=== PATIENT | male | born 1975 | race Caucasian/White ===

== ENCOUNTER 2016-07-30 14:56 | Emergency (ER) | payer SELFPAY ==
[2016-07-30 14:57] VITALS: BMI 26.7
[2016-07-30] MEDS ORDERED: LORAZEPAM 2 MG/ML VIAL IV ONE (15:03)
[2016-07-30] MEDS: NS 1,000 ML IV ONE ×2 (15:13→15:41)
[2016-07-30 15:21] LABS: MPV 10.8 fL (7.4-10.4)
[2016-07-30 15:27] VITALS: TEMP 98.4
--- NOTE | 2016-07-30 15:27 | EDPRACDOC ---
- General Information Stated Complaint: SZ Time Seen by Provider: 07/30/16 15:01 Home Medications: Home Medications Amoxicillin 500 mg PO TID 07/30/16 Chlordiazepoxide HCl [Librium] 25 mg PO Q6 #14 capsule 07/30/16 Fexofenadine HCl [Yessy] 180 mg PO DAILY 07/30/16 Lisinopril/Hydrochlorothiazide [Lisinopril-Hctz 20-25 mg Tab] 1 tab PO DAILY 09/10 Allergies/Adverse Reactions: Allergies Allergy/AdvReac Type Severity Reaction Status Date / Time No Known Allergies Allergy Verified 11/11/15 16:58 - History of Present Illness Exact Onset of Symptoms: Unknown HPI: FOUND "TWITCHING". 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 LAST HEROIN USE A WEEK AGO. ED Past Medical History - History Reviewed Yes Nurses notes reviewed and agree except as marked - Patient Medical History GI/ History: Reports: Kidney Stones Surgical History: Reports: Other (SPLEENECTOMY, POST OP INTRA-ABDOMINAL ABSCESS FROM SPLEENECTOMY) - Social Medical History Smoking Status: Heavy tobacco smoker (5 or more cigarettes/day or daily pipe/ cigar) Social History: Reports: Amphetamine Use (IVDA) ETOH: Social Substance Abuse: Illicit Drugs (IV METHAMPHETAMINE) EDM Review of Systems - Review of Systems ROS Unobtainable: Yes Review of systems cannot be obtained due to the patient's medical condition - Physical Exam Constitutional: Alert, Confused, Restless Oriented to: Person, Not Oriented Last recorded Vital Signs: Oxygen Pulse Oxygen Saturation O2 Device Oxygen Flow Rate Fraction of Inspired Oxygen ( FIO2) - HEENT Head: Normal Eye Exam: Normal. negative: Pale Conjunctiva, Scleral Icterus Oropharynx: Membranes Dry Nose: No Symptoms Reported Neck: Normal - Respiratory/Cardiovascular Respiratory: Normal - CTA Cardiovascular: Tachycardia. negative: Diastolic murmur, Systolic murmur - GI Auscultation: Normal Palpation: Normal Tenderness: Non tender, Other (OLD MIDLINE INCISION SCAR) Allen's Sign: Negative - Musculoskeletal Back: Normal Extremities: Normal, Other (VEINS PATENT). negative: Clubbing, Cyanosis, Pedal Edema, Pedal Pulse - Integumentary Skin: Warm, Dry - Neurologic Motor Function: Other (MOVES ALL EXT) Mood Description: Anxious. negative: Appropriate Thought: Rambling Conversation. negative: Coherent - Differential Diagnosis Dehydration, Hypercalcemia, Hypernatremia, Hypoglycemia, Hyponatremia, Drug Overdose, ETOH intoxication, Medication toxicity, Meningitis, Sepsis - Re-evaluation Re-evaluation 2 Re-evaluation Time: 15:40 AMS IMPROVING, TAKING PO'S AGGRESSIVELY. HR DOWN. PT STILL HAS NO RECOLLECTION OF EVENTS TODAY. Re-evaluation 3 Re-evaluation Time: 16:58 (MUCH IMPROVED, ALERT AND COGNIZANT.) Re-evaluation 4 Re-evaluation Time: 17:30 (PATIENT 'S MOTHER CALLED A 1 CM PLACED IN DETOX, REHAB. THIS IS BASED UPON FACT THAT SHE THINKS HE IS ABUSING METHAMPHETAMINES AND OPIATES.) PATIENT HAS DECLINED DRUG TREATMENT PROGRAMS, REHAB, DETOX. HE HAS NO SUICIDAL IDEATION, HE HAS NO HOME SITE IDEATION HAS BEEN NO INDICATION PSYCHOSIS. FURTHERMORE HIS DRUG SCREEN IS COMPLETELY NEGATIVE FOR AMPHETAMINES AND OPIATES AT THIS TIME. CLINICAL CORRELATION IS THAT HE HAS QUIT TAKING THESE FOR SHORT PERIOD OF TIME AND THEY ARE NOT CURRENTLY IN HIS SYSTEM. ANY DETOX WOULD HAVE ALREADY OCCURRED. NO INDICATION FOR IVC PATIENT WILL BE ALLOWED TO DISCHARGE HOME - Results 07/30/16 15:12 07/30/16 15:12 - EKG EKG #1 EKG Time: 15:07 -: Yes EKG interpreted by me Rate: bpm: 131 [place]: Normal Rhythm: ST Block: None Hypertrophy: None ST: Normal - Diagnostic Imaging Head Image interpreted by: Radiologist Patient Name: CLAUS TONG LOC: ED : 1975 AGE: 40 Order Date:07/30/16 Date of Service:09/10 Report # [id number] Ord Physician: Ruth Ann Abraham MD Exam # [id number] Emergency Physician: Ruth Ann Abraham MD Exam(s): [id number] CT/CT HEAD W/O CM CLINICAL DATA: Altered mental status, drug abuse, seizure activity EXAM: CT HEAD WITHOUT CONTRAST TECHNIQUE: Contiguous axial images were obtained from the base of the skull through the vertex without contrast. COMPARISON: 09/08/2015 FINDINGS: Normal appearance of the intracranial structures. No evidence for acute hemorrhage, mass lesion, midline shift, hydrocephalus or large infarct. No acute bony abnormality. The visualized sinuses are clear. IMPRESSION: No acute intracranial abnormality. Electronically Signed By: Adalberto Rossi M.D. On: 07/30/2016 15:47 Electronically Signed By: Stalin Rossi MD Electronically Signed Date/Time: Dictate Date/Time: 07/30/16 1545 Technologist: Arvind Buck Transcribed By: Sudheer Transcribed Date/Time: 07/30/16 1547 Chest Image interpreted by: Radiologist Patient Name: CLAUS TONG LOC: ED : 1975 AGE: 40 Order Date:07/30/16 Date of Service:09/10 Report # [id number] Ord Physician: Ruth Ann Abraham MD Exam # [id number] Emergency Physician: Ruth Ann Abraham MD Exam(s): [id number] RAD/DG CHEST PORTABLE CLINICAL DATA: Shortness of breath. EXAM: PORTABLE CHEST 1 VIEW COMPARISON: None available currently. FINDINGS: The heart size and mediastinal contours are within normal limits. Both lungs are clear. No pneumothorax or pleural effusion is noted. The visualized skeletal structures are unremarkable. IMPRESSION: No acute cardiopulmonary abnormality seen. Electronically Signed By: Seun Quiñonez Jr, M.D. On: 07/30/2016 15:56 Electronically Signed By: Seun Quiñonez MD Electronically Signed Date/Time: Dictate Date/Time: 07/30/16 1555 Technologist: Js Tarango Transcribed By: Sudheer Transcribed Date/Time: 07/30/16 1556 - Departure Disposition: Home Condition: Good Final Diagnosis: Seizure Instructions: Seizures Education/Counseling Given To: Patient Education/Counseling Given Regarding: Diagnosis, Treatment, Prognosis Referrals: Rocky Matias MD [Primary Care Provider] - One Week Lawson Conn MD [Staff Physician] - One Week Prescriptions: New Chlordiazepoxide HCl [Librium] 25 mg PO Q6 #14 capsule No Action Fexofenadine HCl [Yessy] 180 mg PO DAILY Amoxicillin 500 mg PO TID Lisinopril/Hydrochlorothiazide [Lisinopril-Hctz 20-25 mg Tab] 1 tab PO DAILY Additional Instructions: Do Not drive or operate equipment until cleared by Neurology. If you have a seizure while performing these, you could cause serious harm to yourself or others.
[2016-07-30] MEDS ORDERED: DIAZEPAM 10 MG/2 ML TUBEX IV ONE (15:35)
[2016-07-30] MEDS ORDERED: NS 1,000 ML IV ONE (15:35)
--- NOTE | 2016-07-30 15:50 | DIRPT ---
CLINICAL DATA: Altered mental status, drug abuse, seizure activity EXAM: CT HEAD WITHOUT CONTRAST TECHNIQUE: Contiguous axial images were obtained from the base of the skull through the vertex without contrast. COMPARISON: 09/08/2015 FINDINGS: Normal appearance of the intracranial structures. No evidence for acute hemorrhage, mass lesion, midline shift, hydrocephalus or large infarct. No acute bony abnormality. The visualized sinuses are clear. IMPRESSION: No acute intracranial abnormality. Electronically Signed By: Adalberto Rossi M.D. On: 07/30/2016 15:47
[2016-07-30 15:51] LABS: BLOOD UREA NITROGEN 7 MG/DL (9-20); CALCIUM 8.9 MG/DL (8.4-10.2); CALCULATED OSMOLALITY 269 MOs/Kg (270-290); CHLORIDE 102 mEq/L (98-107); GLUCOSE 156 mg/dL (70-99); SODIUM LEVEL 139 mEq/L (137-146); TOTAL PROTEIN 8.3 G/DL (6.3-8.2)
[2016-07-30 15:52] LABS: ETOH-MGDL < 10 mg/dL
--- NOTE | 2016-07-30 15:59 | DIRPT ---
CLINICAL DATA: Shortness of breath. EXAM: PORTABLE CHEST 1 VIEW COMPARISON: None available currently. FINDINGS: The heart size and mediastinal contours are within normal limits. Both lungs are clear. No pneumothorax or pleural effusion is noted. The visualized skeletal structures are unremarkable. IMPRESSION: No acute cardiopulmonary abnormality seen. Electronically Signed By: Seun Quiñonez Jr, M.D. On: 07/30/2016 15:56
[2016-07-30 16:11] LABS: CPK TOTAL WITH POSSIBLE MB 262 IU/L (55-170)
[2016-07-30 16:16] LABS: ALL NEG? NO
[2016-07-30 16:20] LABS: SEG NEUTROPHIL 78 % (45-76)
[2016-07-30 16:26] LABS: CPKMB 1.7 ng/mL (0-4.5)
[2016-07-30 16:27] LABS: MDMA* NEG (NEGATIVE); METHAMPHETAMINES NEG (NEGATIVE); OXYCODONE NEG (NEGATIVE)
[2016-07-30 16:51] VITALS: BP 141/77; PULSE 96
== END 2016-07-30 18:27 | disposition home or self-care (01) ==
LOC: ED 14:56
DX: R56.9 Unspecified convulsions (principal)
CPT/HCPCS: 36415; 70450; 71010; 80053; 80307; 82550; 82553; 85007; 85027; 93005; 96361; 96374; 96375; 99284; J2060; J3360